=== PATIENT | male | born 1955 | race Caucasian/White ===

== ENCOUNTER 2017-02-15 07:12 | Day surgery (SDC) | payer OTHER ==
--- NOTE | 2017-02-08 11:57 | HISTORY AND PHYSICAL E ---
History and Physical NAME: MIHIR PARK : 1955 AGE: 61Y ADMITTED: 02/15/2017 ROOM: HISTORY OF PRESENT ILLNESS: The patient is known to us, in 2013 a colonoscopy was done showing a 3 mm polyp rectum, external hemorrhoids. At this time the patient for follow up colonoscopy/colon screening. The patient for colon screening. SOCIAL HISTORY: , does not smoke, does not drink . REVIEW OF SYSTEMS: HEAD, EARS, EYES, NOSE AND THROAT: Hearing aids bilateral. Eye glasses. RESPIRATORY: Negative. CARDIAC: Negative. ENDOCRINE: Negative. GASTROINTESTINAL: Colon screening. ONCOLOGY/HEMATOLOGY: Negative. NEUROLOGY: Negative. FAMILY HISTORY: Father, past history unknown. Mother is alive. PHYSICAL EXAMINATION: GENERAL: Pleasant, alert, oriented, in no acute distress. VITAL SIGNS: Blood pressure 130/80, pulse 80, respirations 20, temperature 98. HEAD, EARS, EYES, NOSE AND THROAT: Normal. NECK: Supple. CARDIOVASCULAR: Normal. LUNGS: Clear. ABDOMEN: Soft. NEUROLOGIC: Exam negative. CONCLUSION: Colon screening. DICTATING PHYSICIAN: HARLEY ONEIL M.D. [id number] PHY#: [id number] ID: [id number] JOB#: [id number] ACCT: [id number] cc:HARLEY ONEIL M.D. >
[~2017-02-15 07:12] MED LIST: EPINEPHRINE INJ 1 MG/10 ML DISP.SYRIN ONE; FENTANYL CITRATE INJ/PF 100 MCG/2 ML AMPUL ONE; FLUMAZENIL INJ 0.5 MG/5 ML VIAL ONE; GLUCAGON,HUMAN RECOMB 1 MG INJ ONE; GLYCOPYRROLATE INJ 0.4 MG/2 ML VIAL ONE; LIDOCAINE 2% JELLY 30 ML TUBE ONE; MIDAZOLAM 2 MG/2 ML INJ ONE; NALOXONE HCL INJ/PF 0.4 MG/1 ML SDV ONE; ONDANSETRON HCL INJ/PF 4 MG/2 ML SDV ONE
[2017-02-15 09:30] VITALS: BP 117/65
--- NOTE | 2017-02-15 12:09 | DISCHARGE SUMMARY E ---
Discharge Summary NAME: MIHIR PARK : 1955 AGE: 61Y ADMITTED: 02/15/2017 DISCHARGED: 02/15/2017 FINAL DIAGNOSIS: Rectosigmoid polyp injected and resected. HISTORY: A 61-year-old male underwent colon screening. It shows sessile polyp in rectosigmoid junction resected. No difficulties. Prep was okay but not optimal. Consider age and followup colonoscopy 3 years with better prep. Awaiting histopathology. DISCHARGE PLAN: Soft diet. Hold aspirin. FINAL DIAGNOSIS: Rectosigmoid polyp resected. DICTATING PHYSICIAN: HARLEY ONEIL M.D. [id number] [id number] PHY#: [id number] ID: [id number] JOB#: [id number] ACCT: [id number] cc:HARLEY ONEIL M.D. >
--- NOTE | 2017-02-15 12:09 | OPERATIVE REPORT E ---
Operative Report NAME: MIHIR PARK : 1955 AGE: 61Y DATE OF SURGERY: 02/15/2017 ROOM: PREOPERATIVE DIAGNOSIS: Colon screening. POSTOPERATIVE DIAGNOSIS: Sessile 0.5 cm polyp rectosigmoid junction. PROCEDURE: Colonoscopy. SURGEON: HARLEY ONEIL M.D. ANESTHESIA: Versed 4 and fentanyl 100. TISSUE REMOVED OR ALTERED: Polyp rectosigmoid, injected and resected with no difficulties. PROCEDURE: Rectal exam normal. Rectosigmoid shows a semi-pedunculated polyp, 0.5 cm, rectosigmoid junction. Descending colon normal. Transverse colon normal. Ascending colon normal. Cecum normal. Scope withdrawn from cecum, ascending, transverse, descending, sigmoid all the way to the rectum. Prep was okay but inadequate. Moderate amount of stool. Recommend followup colonoscopy 3 years with better prep. CONCLUSION: Rectosigmoid polyp, injected and resected. No difficulties. DISCHARGE PLAN: Soft diet. Hold aspirin. Awaiting pathology. Consideration followup colonoscopy 3 years. DICTATING PHYSICIAN: HARLEY ONEIL M.D. [id number] PHY#: [id number] ID: [id number] JOB#: [id number] ACCT: [id number] cc:HARLEY ONEIL M.D. >
== END 2017-02-15 09:35 | disposition home or self-care (01) ==
LOC: END 07:12
PROVIDERS: ATTEND Specialist
PROC: 0DBN8ZX Excision of Sigmoid Colon, Via Natural or Artificial Opening Endoscopic, Diagnostic (ICD-10-PCS; 2017-02-15)
PROC: 3E0H8GC Introduction of Other Therapeutic Substance into Lower GI, Via Natural or Artificial Opening Endoscopic (ICD-10-PCS; 2017-02-15)
PROC: 0DBP8ZX Excision of Rectum, Via Natural or Artificial Opening Endoscopic, Diagnostic (ICD-10-PCS; principal; 2017-02-15 08:00)
DX: Z12.11 Encounter for screening for malignant neoplasm of colon (principal); D12.7 Benign neoplasm of rectosigmoid junction
CPT/HCPCS: 45385; 88305 ×2; J2250; J3010; J1610; J2405; J0171; J2310; J3490

== ENCOUNTER 2020-01-20 18:44 | Emergency (ER) | payer SELFPAY ==
[2020-01-20 18:58] VITALS: BP 125/77
--- NOTE | 2020-01-20 19:20 | ER Document Report ---
HPI - HPI Time Seen by Provider: 01/20/20 19:09 Context: Patient is a 64-year-old male who presents emergency department with a chief complaint of left ear pain that started 2 days ago. Patient states that he has a headache on that side. States that he might have an ear infection. Patient d id not take Mucinex sinus max and broke out into a rash. Denies any fever, body aches, or chills. Patient has been on Bactrim for a cyst to his right side of his chest. Denies any numbness or tingling anywhere. - ROS Systems Reviewed and Negative: Yes All other systems reviewed and negative - CONSTITUTIONAL Constitutional: DENIES: Fever, Chills - EENT EENT: REPORTS: Ear Pain - Left. DENIES: Sore Throat, Nasal Drainage-Clear, Nasal Drainage-Purulent, Congestion, Eye problems - NEURO Neurology: DENIES: Headache, Weakness, Vision blurred, Dizzinesss / Vertigo - CARDIOVASCULAR Cardiovascular: DENIES: Chest pain - MUSCULOSKELETAL Musculoskeletal: DENIES: Extremity pain - DERM Skin Problems: Rash Past Medical History - General Information source: Patient - Social History Smoking Status: Unknown if Ever Smoked Family History: Reviewed & Not Pertinent - Past Medical History Cardiac Medical History: Denies: Hx Coronary Artery Disease, Hx Heart Attack, Hx Hypertension Pulmonary Medical History: Denies: Hx Asthma, Hx Bronchitis, Hx COPD, Hx Pneumonia Neurological Medical History: Denies: Hx Cerebrovascular Accident, Hx Seizures GI Medical History: Reports: Hx Gastroesophageal Reflux Disease, Hx Hiatal Hernia Musculoskeletal Medical History: Reports Hx Arthritis - HANDS - Immunizations Hx Diphtheria, Pertussis, Tetanus Vaccination: Yes Vertical Provider Document - CONSTITUTIONAL Agree With Documented VS: Yes Exam Limitations: No Limitations General Appearance: No Apparent Distress - INFECTION CONTROL TRAVEL OUTSIDE OF THE [place] IN LAST 30 DAYS: No - HEENT HEENT: Atraumatic, Normocephalic, PERRLA, Tympanic Membrane Red - Left, Tympanic Membrane Bulging. negative: Conjuctival Injection, Pharyngeal Exudate, Pharyngeal Tenderness, Pharyngeal Erythema - NECK Neck: Normal Inspection - RESPIRATORY Respiratory: Breath Sounds Normal, No Respiratory Distress - CARDIOVASCULAR Cardiovascular: Regular Rate, Regular Rhythm Pulses: Normal: Radial - GI/ABDOMEN Gastrointestinal: Abdomen Soft, Abdomen Non-Tender - MUSCULOSKELETAL/EXTREMETIES Musculoskeletal/Extremeties: FROM - NEURO Level of Consciousness: Awake, Alert, Appropriate - DERM Integumentary: Warm, Dry, Rash - over entire body. Course - Re-evaluation Re-evalutation: 01/20/20 Rash is consistent with an allergic reaction to the Mucinex. Patient states that he had never had Mucinex before. He was already on Bactrim, but never broke out in a rash, therefore I do not suspect this is from that medication. Advised the patient to stop the Bactrim and I will place him on Augmentin for left otitis media, as his left tympanic membrane is erythematous.. There is no tenderness noted at the mastoid process. I have a low suspicion for mastoiditis. Follow-up precautions were given. Verbal discharge instructions were given to the patient. They verbalized understanding. They are stable for discharge. - Vital Signs Vital signs: Temp Pulse Resp BP Pulse Ox 100.1 F 92 18 125/77 97 01/20/20 18:56 01/20/20 18:56 01/20/20 18:56 01/20/20 18:56 01/20/20 18:56 Discharge - Discharge Clinical Impression: Left otitis media Qualifiers: Otitis media type: mucoid Chronicity: acute Qualified Code(s): H65.112 - Acute and subacute allergic otitis media (mucoid) (sanguinous) (serous), left ear Condition: Stable Disposition: HOME, SELF-CARE Instructions: Otitis Externa ([facility]) Additional Instructions: Otitis Media You have a middle ear infection (otitis media). This is usually a complication of a cold or sore throat. The middle ear cavity becomes filled with infection. Pressure and stretching of the ear drum cause pain. Antibiotics are required. A 10 day course is usually prescribed. A decongestant may be recommended if you have a "runny nose." You may need anesthetic drops or other pain medication. A follow-up exam may be recommended to make sure the infection has completely cleared. If the ear begins to drain, it means the ear drum has ruptured. This will usually heal spontaneously. However, it means you should keep the ear dry until re-examined by a doctor. Call the physician or return for examination at once if there is severe headache, stiff neck, confusion, increasing fever, or dizziness. You should improve significantly within two days. If you're not better, call the doctor. Stop taking the antibiotic you are taking right now. Start taking the new antibiotic as prescribed. Follow-up with your primary care provider in regards to this visit. Prescriptions: Amoxicillin/Potassium Clav [Augmentin 875-125 Tablet] 1 tab PO BID #20 tab
== END 2020-01-20 19:31 | disposition home or self-care (01) ==
LOC: ER 18:44
DX: H65.112 Acute and subacute allergic otitis media (mucoid) (sanguinous) (serous), left ear (principal)
CPT/HCPCS: 99283